=== PATIENT | female | born 1975 | race Caucasian/White ===

== ENCOUNTER 2020-08-08 14:27 | Emergency (ER) | payer OTHER, SELFPAY ==
[2020-08-08 15:06] VITALS: BP 150/88; PULSE 76; RESP 16; TEMP 37.1; O2SAT 100
--- NOTE | 2020-08-08 15:36 | ED.BACK ---
HPI - Back Pain/Injury General Chief Complaint: Back Pain/Injury Stated Complaint: back pain Time Seen by Provider: 08/08/20 15:15 Source: patient and RN notes reviewed Mode of arrival: ambulatory Limitations: no limitations History of Present Illness HPI Narrative: Patient presents today complaining of back pain since yesterday. 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 She is now experiencing severe low back pain that is exacerbated when she moves or twist. Denies numbness or tingling in the legs or feet. Denies radiation of the pain. Denies any loss of bowel or bladder control. She has been wearing a back brace and taking ibuprofen without relief. MD elicited complaint: back pain Related Data Allergies Allergy/AdvReac Type Severity Reaction Status Date / Time No Known Allergies Allergy Verified 08/08/20 15:19 Review of Systems Review of Systems: Narrative: CONSTITUTIONAL: Denies body aches, fever, chills, or sweats. EYES: Denies visual changes, redness, or discharge. ENT: Denies rhinorrhea, congestion, sore throat, or otalgia. CARDIOVASCULAR: Denies chest pain, palpitations, or edema. RESPIRATORY: Denies cough or dyspnea. GASTROINTESTINAL: Denies abdominal pain, nausea, vomiting, or diarrhea. GENITOURINARY: Denies dysuria or hematuria. SKIN: Denies rash, itching, or wounds. MUSCULOSKELETAL: Denies joint pain, or myalgia. + Back pain NEUROLOGIC: Denies headache, numbness, tingling, or weakness. PSYCH: Denies depression or anxiety. PMFSH Comments At time of signature, I have reviewed and agree with nursing past medical, surgical, social and family history unless otherwise noted. Please see nursing chart for further information. There is no relevant family history pertinent to the presenting complaint Exam Narrative: Exam Narrative: GENERAL: Well-appearing, well-nourished, and in no acute distress. HEAD: Normocephalic, atraumatic. EYES: EOMI. No redness or drainage. Conjunctivae normal. ENT: Mucous membranes pink and moist. NECK: Normal AROM. CHEST: No respiratory distress. MUSCULOSKELETAL: No bony tenderness of the spine. Mild tenderness to the lumbar bilateral paraspinal muscles. No tenderness to the SI joints. No edema, deformity, or step-off. Distal sensation intact. Saddle sensation intact. Capillary refill normal. Foot push and pulls equal and strong. EXTREMITIES: Normal range of motion. No edema. SKIN: Warm, dry, no rash. Capillary refill normal. Normal skin turgor. NEURO: No focal deficits. Alert and oriented x3. Gait steady. PSYCH: Normal affect. No signs of depression or anxiety. Course Vital Signs Vital signs: Vital Signs Temperature 98.8 F 08/08/20 15:06 Pulse Rate 76 08/08/20 15:06 Respiratory Rate 16 08/08/20 15:06 Blood Pressure 150/88 H 08/08/20 15:06 Pulse Oximetry 100 08/08/20 15:06 Temperature 98.8 F 08/08/20 15:06 Pulse Rate 76 08/08/20 15:06 Respiratory Rate 16 08/08/20 15:06 Blood Pressure 150/88 H 08/08/20 15:06 Pulse Oximetry 100 08/08/20 15:06 Reviewed. Pt has been instructed to follow up with her PCP regarding her elevated blood pressure today. MDM - Back Pain/Injury Differential Diagnosis Differential diagnosis: Likely lumbar radiculopathy, sciatica and strain of lumbar region Critical Care Time Critical Care Time Critical Care Time: No Discharge Plan Discharge Clinical Impression: Strain of lumbar region Qualifiers: Encounter type: initial encounter Qualified Code(s): S39.012A - Strain of muscle, fascia and tendon of lower back, initial encounter Patient Disposition: Home, Self-Care Condition: Stable Instructions: Low Back Strain (ED) Additional Instructions: Please take all medications as prescribed. Do not drive within 8 hours of taking the tramadol and Flexeril. Start the prednisone tomorrow morning as it can keep you awake at night. Continue ibuprofen at home for pain and inflammation. Follow-up
== END 2020-08-08 15:48 | disposition home or self-care (01) ==
PROVIDERS: Emergency Provider Nurse Practitioner
DX: S39.012A Strain of muscle, fascia and tendon of lower back, initial encounter (principal); X50.0XXA Overexertion from strenuous movement or load, initial encounter
CPT/HCPCS: 99213; G0463

== ENCOUNTER 2023-01-07 10:23 | Emergency (ER) | payer OTHER, SELFPAY ==
--- NOTE | ~2023-01-07 | XR_ITS ---
EXAMINATION: XR hip LT min 2V DATE: 01/07/2023 11:04 INDICATION: Left hip pain. Fall. TECHNIQUE: 3 views of left hip were obtained. COMPARISON: None. FINDINGS: Bone alignment is normal. No fracture. There is mild left hip osteoarthritis. IMPRESSION: 1. Mild left hip osteoarthritis. Reviewed, dictated and finalized at location E.
[2023-01-07 10:38] VITALS: BP 151/84; PULSE 88; RESP 16; TEMP 37.6; O2SAT 99
--- NOTE | 2023-01-07 10:44 | ED.FALL ---
HPI - Fall General Chief Complaint: Fall Stated Complaint: Fall Time Seen by Provider: 01/07/23 10:44 Source: patient Mode of arrival: ambulatory Limitations: no limitations History of Present Illness HPI Narrative: 47-year-old female presented for complaint pain to multiple sites after fall this morning. She states while outside she slipped on ice and fell to the ground. She denies hitting her head or LOC. She states when she stood up she felt dizzy and nauseous which has persisted. Pain is worse to the left hip and right trapezius, and right lower back. Reports bruise to right thumb and abrasion to left ankle. Denies headache, vision changes, denies deformity or bleeding. Took ibuprofen. Related Data Allergies Allergy/AdvReac Type Severity Reaction Status Date / Time No Known Allergies Allergy Verified 01/07/23 10:38 Review of Systems Review of Systems: CONSTITUTIONAL: Denies body aches, fever, chills EYES: Denies visual changes CARDIOVASCULAR: Denies chest pain, palpitations, or edema. RESPIRATORY: Denies cough or dyspnea. GASTROINTESTINAL: Denies abdominal pain, nausea, vomiting, or diarrhea. SKIN: Denies rash, itching, or wounds. MUSCULOSKELETAL: reports back pain, hip, ankle and left trapezius pain NEUROLOGIC: Denies headache, numbness, tingling, or weakness. All systems reviewed & are unremarkable except as noted in HPI and below [facility] Past Medical History Medical History (Updated 01/07/23 @ 11:18 by Janine Romero APRN) No pertinent past medical history Comments At time of signature, I have reviewed and agree with nursing past medical, surgical, social and family history unless otherwise noted. Please see nursing chart for further information. There is no relevant family history pertinent to the presenting complaint Exam Narrative: GENERAL: Appears in pain, in no acute distress. HEAD: Normocephalic, atraumatic. EYES: conjunctivae clear NECK: Supple. full ROM CHEST: Speaks in full sentences. No respiratory distress. HEART: Regular rate and rhythm. Normal and equal peripheral pulses. MUSC: Left trapezius tenderness with palpation. Left lower backup administrative coordinator with palpation. No Vertebral point tenderness. BLEs with normal strength and sensation, normal range of motion but endorses pain to left hip and right low back with movement. Moderate bruising and swelling to left lateral/upper thigh, superficial transverse abrasion to posterior upper left thigh. Full ROM to BUEs. No obvious deformity; pulse palpable and equal bilaterally, skin warm, dry, pink. Capillary refill less than 3 seconds. Gait steady, slow. Right palmar surface of 1st metacarpal with mild bruising and swelling; full ROM, nontender. SKIN: Warm, dry, Left lateral ankle abrasion, full ROM, no swelling. NEURO: Alert and oriented x3. Back/Spine/Pelvis: Back/spine/pelvis image: 1. localized area of tenderness with palpation, no bruising/redness Extrem: Upper/lower leg/hip images: 1. area of swelling and bruising Course Course Emergency Course: Patient is aware of diagnosis, understands and agrees to treatment plan. Anticipatory guidance given. Patient agrees to follow-up as directed and is aware of reasons to seek care at the emergency department. Portions of this record may have been created with voice recognition software Level of Care: Express Care Visit Vital Signs Vital signs: Vital Signs Temperature 99.6 F 01/07/23 10:38 Pulse Rate 88 01/07/23 10:38 Respiratory Rate 16 01/07/23 10:38 Blood Pressure 151/84 H 01/07/23 10:38 Pulse Oximetry 99 01/07/23 10:38 Oxygen Delivery Room Air 01/07/23 10:38 Temperature 99.6 F 01/07/23 10:38 Pulse Rate 88 01/07/23 10:38 Respiratory Rate 16 01/07/23 10:38 Blood Pressure 151/84 H 01/07/23 10:38 Pulse Oximetry 99 01/07/23 10:38 Oxygen Delivery Room Air 01/07/23 10:38 Reviewed MDM - Fall MDM Narrative Medical decision making kieran
== END 2023-01-07 11:23 | disposition home or self-care (01) ==
PROVIDERS: Emergency Provider Nurse Practitioner Family
DX: S70.02XA Contusion of left hip, initial encounter (principal); W00.0XXA Fall on same level due to ice and snow, initial encounter; M54.6 Pain in thoracic spine; M54.50 Low back pain, unspecified
CPT/HCPCS: 73502; 99213; G0463

== ENCOUNTER 2023-08-11 10:11 | Emergency (ER) | payer OTHER, SELFPAY ==
[2023-08-11 10:27] VITALS: BP 141/92; PULSE 91; RESP 18; TEMP 37.2; O2SAT 100
--- NOTE | 2023-08-11 10:43 | ED.URI ---
HPI - URI/Sore Throat General Chief Complaint: Upper Respiratory Infection Stated Complaint: Sore Throat,Cough,Chest Congestion,Back Pain Time Seen by Provider: 08/11/23 10:38 Source: patient and RN notes reviewed Mode of arrival: ambulatory Limitations: no limitations History of Present Illness HPI Narrative: Patient presents today complaining of a 3 day history of right ear pain with a 2 day history of rhinorrhea, sore throat, sneezing, with sweats, subjective fever, and slight cough since yesterday. Patient works in a care home. She has tried cold medicine, Tylenol, Benadryl, and ibuprofen with mild relief. She is requesting testing to make sure she is not contagious at work. Related Data Home Medications Medication Instructions Recorded Confirmed No Home Medications 08/11/23 08/11/23 Allergies Allergy/AdvReac Type Severity Reaction Status Date / Time No Known Allergies Allergy Verified 01/07/23 10:38 Review of Systems Review of Systems: CONSTITUTIONAL: + subjective fever, sweats EYES: Denies visual changes, redness, or discharge. ENT: Denies congestion. + rhinorrhea, sore throat, sneezing, right ear pain CARDIOVASCULAR: Denies chest pain, palpitations, or edema. RESPIRATORY: Denies dyspnea.+ cough GASTROINTESTINAL: Denies abdominal pain, nausea, vomiting, or diarrhea. GENITOURINARY: Denies dysuria or hematuria. SKIN: Denies rash, itching, or wounds. MUSCULOSKELETAL: Denies back pain, joint pain, or myalgia. NEUROLOGIC: Denies headache, numbness, tingling, or weakness. PSYCH: Denies depression or anxiety. [facility] Past Medical History Medical History No pertinent past medical history Comments At time of signature, I have reviewed and agree with nursing past medical, surgical, social and family history unless otherwise noted. Please see nursing chart for further information. There is no relevant family history pertinent to the presenting complaint Exam Narrative: GENERAL: Well-appearing, well-nourished, and in no acute distress. HEAD: Normocephalic, atraumatic. EYES: EOMI. No redness or drainage. Conjunctivae normal. ENT: Mucous membranes pink and moist. Nares clear. + rhinorrhea. TMs normal bilaterally. Throat normal. Uvula midline. NECK: Normal AROM. Supple. No lymphadenopathy. CHEST: No respiratory distress. Clear to auscultation. HEART: Regular rate and rhythm. No murmur appreciated. EXTREMITIES: Normal range of motion. No edema. SKIN: Warm, dry, no rash. Capillary refill normal. Normal skin turgor. NEURO: No focal deficits. Alert and oriented x3. Gait steady. PSYCH: Normal affect. No signs of depression or anxiety. Course Course Level of Care: Express Care Visit Vital Signs Vital signs: Vital Signs Temperature 98.9 F 08/11/23 10:27 Pulse Rate 91 08/11/23 10:27 Respiratory Rate 18 08/11/23 10:27 Blood Pressure 141/92 H 08/11/23 10:27 Pulse Oximetry 100 08/11/23 10:27 Oxygen Delivery Room Air 08/11/23 10:27 Temperature 98.9 F 08/11/23 10:27 Pulse Rate 91 08/11/23 10:27 Respiratory Rate 18 08/11/23 10:27 Blood Pressure 141/92 H 08/11/23 10:27 Pulse Oximetry 100 08/11/23 10:27 Oxygen Delivery Room Air 08/11/23 10:27 Reviewed MDM - URI/Sore Throat MDM Narrative Medical decision making narrative: Testing is negative. Strep culture pending. Symptoms likely viral in etiology. Discussed [id number] medication use and duration of illness. No prescription medications indicated at this time. Anticipatory guidance given. Differential Diagnosis Differential diagnosis: Likely upper respiratory infection, otitis media, viral infection, bronchitis, influenza, pharyngitis and other (Strep throat, COVID) Lab Data Attestation: I reviewed the patient's lab results. Labs: Lab Results 08/11/23 Range/Units 10:30 POC SARS CoV-2 Ag Negative (Negative) In
== END 2023-08-11 10:57 | disposition home or self-care (01) ==
PROVIDERS: Emergency Provider Nurse Practitioner
DX: J06.9 Acute upper respiratory infection, unspecified (principal); Z20.822 Contact with and (suspected) exposure to COVID-19
CPT/HCPCS: 87081; 87426; 87804; 87880; 99213; G0463

== ENCOUNTER 2024-03-17 01:10 | Day surgery (SDC) | payer OTHER, SELFPAY ==
[2024-02-25 13:33] VITALS: BMI 31.1
[2024-03-17 07:09] VITALS: BP 139/99; PULSE 72; RESP 18; TEMP 36.1; O2SAT 100
--- NOTE | 2024-03-17 07:13 | PM.IMHP ---
H&P: HPI History of Present Illness Date/Time: 03/17/24 07:13 Chief Complaint: History of colon polyps - iron deficiency anemia/dyspepsia Narrative: The patient has a history of colonic polyps, the last colonoscopy was 5 years ago. In addition, patient has been found to have iron deficiency anemia, although she states having heavy menses. However, she also has a history of intermittent heartburn in the absence of dysphagia and frequent, occasional epigastric discomfort/ pain, especially when she takes NSAIDs. Review of Systems Review of Systems: All systems reviewed & are unremarkable except as noted in HPI and below PMFSH Past Medical History Medical History No pertinent past medical history Social History Social History Smoking status: Never smoker Substance use type: does not use Living arrangements: with family Spiritual care concerns: No Meds Home Medications and Allergies Home Medications ?Medication ?Instructions ?Recorded ?Confirmed ?Type ferrous sulfate 325 mg (65 mg 325 mg PO DAILY 02/25/24 02/25/24 History iron) tablet (FeroSul) tramadol 50 mg tablet 50 mg PO HS PRN pain 02/25/24 02/25/24 History Allergies Allergy/AdvReac Type Severity Reaction Status Date / Time No Known Allergies Allergy Verified 03/17/24 07:09 Exam Const: General: cooperative and healthy appearing Resp: Effort & Inspection: normal respiratory effort and able to speak in complete sentences Auscultation: clear to auscultation bilaterally Cardio: Rate: regular rate Rhythm: regular rhythm GI: Inspection: normal to inspection GI Palp: No No hepatosplenomegaly present Auscultation: normal bowel sounds Rectal Exam: deferred Skin: General skin exam: normal color Psych: Appearance: grossly normal Mental Status: mental status grossly normal Assessment and Plan Assessment and plan (1) Iron deficiency anemia: Code(s): D50.9 - Iron deficiency anemia, unspecified Status: Acute Assessment and Plan: The patient is deemed a good candidate for the procedures. Consent signed. Will proceed. (2) History of colonic polyps: Code(s): Z86.0100 - Personal history of colon polyps, unspecified Status: Acute (3) Dyspepsia: Code(s): R10.13 - Epigastric pain Status: Acute
[2024-03-17 07:18] LABS: BEDSIDEPREGUCG Negative (Negative)
[2024-03-17] MEDS: LACTATED RINGERS 1,000 ML 150 ML IV CONT (07:21)
--- NOTE | 2024-03-17 07:32 | WPDANESEPPF ---
Anes - Initial Pre Proc Eval Procedure: Operation Date: 03/17/24 08:30 Proposed Procedures p Esophagogastroduodenoscopy&Screen Colon - Aaron Hernández MD Date/Time: 03/17/24 07:32 Surgeon: Aaron Hernández MD Pre Op Diagnosis: nausea, screening colon Patient Data Age: 48 Gender: F Height: 1.68 m Weight: 84.1 kg Last Vital Signs Temp 36.1 C L 03/17/24 07:09 Pulse 72 03/17/24 07:09 Resp 18 03/17/24 07:09 BP 139/99 H 03/17/24 07:09 Pulse Ox 100 03/17/24 07:09 O2 Del Method Room Air 03/17/24 07:09 Allergies Allergy/AdvReac Type Severity Reaction Status Date / Time No Known Allergies Allergy Verified 03/17/24 07:09 Home Medications ?Medication ?Instructions ?Recorded ?Confirmed ?Type ferrous sulfate 325 mg (65 mg 325 mg PO DAILY 02/25/24 03/17/24 History iron) tablet (FeroSul) tramadol 50 mg tablet 50 mg PO HS PRN pain 02/25/24 02/25/24 History Laboratory Tests 03/17/24 07:09 POC Urine HCG, Qual Negative (Negative) Patient hx anesthesia problems: none Family hx anesthesia problems: none Results Review: All pre-operative results and documents have been reviewed as part of the pre-operative evaluation. [facility] Past Medical History Medical History (Updated 03/17/24 @ 07:32 by Miguel Angel Akers MD) Obesity No pertinent past medical history Surgical History Surgical History (Updated 03/17/24 @ 07:32 by Miguel Angel Akers MD) History of tubal ligation Social History Social History Smoking status: Never smoker Substance use type: does not use Living arrangements: with family Spiritual care concerns: No Anes - Eval Final PreProcedure Day of Procedure 03/17/24 07:32 Patient weight: obese Heart: regular rate and rhythm Lungs: clear to auscultation Airway: Mallampati scale class II Neurological: alert and oriented Last oral intake: >/= 8 hours ASA classification: II Emergent: no Anesthetic plan: proceed Anesthesia type and monitoring: general GIVS and standard monitoring Results Review: All pre-operative results and documents have been reviewed as part of the pre-operative evaluation. Informed Consent: The patient's anesthetic plan and its attendant risks and benefits were discussed with the patient/family/POA. Questions were solicited and answers provided to the satisfaction of the patient/family/POA.
--- NOTE | 2024-03-17 08:51 | SUR.OPER ---
EGD START TIME 0830, END TIME 0834. COLONOSCOPY START TIME 0839, END TIME 0850.
[2024-03-17 08:55] VITALS: BP 113/77; PULSE 72; RESP 24; O2SAT 98
[2024-03-17 09:05] VITALS: BP 123/85; PULSE 65; RESP 22; O2SAT 100
[2024-03-17 09:15] VITALS: BP 140/99; PULSE 60; RESP 18; O2SAT 100
[2024-03-17 09:20] VITALS: BP 153/103; PULSE 62; RESP 22; O2SAT 100
[2024-03-17 09:27] LABS: Glucose Point of Care 69 mg/dl (65-105)
[2024-03-17 09:58] LABS: Glucose Point of Care 85 mg/dl (65-105)
--- NOTE | 2024-03-17 11:39 | SUR.PHASEII ---
0920 pt stated she needed to use the bathroom. attempted to sit pt up on side of bed but pt unable to stand. states she just feels very tired. placed back in bed and placed on bedpan. mother remained at bedside. checked on pt after 2 minutes to take her off bedpan and she did not respond to verbal commands. called for assistance, pts heart rate was in the 60s sinus rhythm, pulse ox 98, unable to get a bp reading. blood sugar obtained, 69. heart rate remained in the 60s sinus rhythm, bp reading after moving cuff was 160/105, pulse ox 96. pt responded to verbal commands but words slurred. pt was given apple juice and she was able to drink from the straw without difficulty. continued to say she was just very tired and cold. pt was given warm blankets and continued to monitor. mother stated pt had not slept at all the night before and has been under a tremendous amount of stress. bp readings continued to be 160s over low 100s, pt and mother stated she has history of high bp but has not been taking any meds. encouraged pt to make an appt with her pcp and discuss her bp. blood sugar rechecked, reading of 85. pt states she was feeling better, a/o x 3. bp 164/98, hr 65 sinus, pulse ox 98. ptstated she needed to go to the bathroom again, was able to stand with assist and taken to bathroom per w/c. pt was able to get dressed without difficulty, teaching reinforced, encouraged pt to eat as soon as she got home and to drink fluid, verbalized understanding.
== END 2024-03-17 09:59 | disposition home or self-care (01) ==
PROVIDERS: Anesthesiology; PCP Emergency Medicine; Visit Provider Internal Medicine Gastroenterology
PROC: 0DJ08ZZ Inspection of Upper Intestinal Tract, Via Natural or Artificial Opening Endoscopic (ICD-10-PCS; CPT 45378; principal; 2024-03-17 08:30)
DX: Z12.11 Encounter for screening for malignant neoplasm of colon (principal); K29.50 Unspecified chronic gastritis without bleeding; D50.9 Iron deficiency anemia, unspecified; K21.9 Gastro-esophageal reflux disease without esophagitis; E66.9 Obesity, unspecified; Z68.29 Body mass index [BMI] 29.0-29.9, adult; Z79.891 Long term (current) use of opiate analgesic; Z98.890 Other specified postprocedural states; Z98.51 Tubal ligation status; Z86.0100 Personal history of colon polyps, unspecified
CPT/HCPCS: 43239; 45378; 82948; 88305; J2003; J2704; J7120